=== PATIENT | female | born 1970 | race Caucasian/White ===

== ENCOUNTER 2024-03-07 19:44 | Inpatient (IN) | payer BC, SELFPAY ==
[2024-03-07 14:18] VITALS: BP 152/92
--- NOTE | 2024-03-07 14:19 | ED.GENMED ---
ED Provider Triage
<Katharina Watson PA-C - Last Filed: 03/07/24 14:27>
-
Patient seen by provider in Triage?: Seen in Triage
Attestation: A medical screening examination has been initiated by a qualified medical provider. Based on the assessment performed at this time, it has been determined that an emergent medical condition may exist and the patient has been informed
that further medical evaluation and possible additional diagnostic testing may be needed.
HPI: 53yoF here with L flank pain that began at 2:30am this morning. Feels like kidney stone pain. Pain started to radiate into upper back/neck 1 hour ago. Now c/o slight chest pain. +Vomiting.
GENERAL: Alert , in no apparent distress
EYE: No visual abnormalities.
NECK: Trachea midline
ENT: No visible abnormalities.
LUNGS: No acute respiratory distress
NEUROLOGICAL: Alert and oriented
SKIN: Skin intact. No visible changes.
MUSCULOSKELETAL: Moving extremities normally
PSYCH: Normal and appropriate interaction.
This is a medical evaluation conducted in person to initiate diagnostic evaluation and provide initial therapeutics. Please see further documentation by the treating clinician.
Cardiac labs, UA, EKG, CXR, and CT abdomen ordered.
History of Present Illness
<Katharina Watson PA-C - Last Filed: 03/07/24 14:27>
General
Chief Complaint: Back Pain
Time Seen by Provider: 03/07/24 17:00
<Junito Sykes PA-C - Last Filed: 03/07/24 20:16>
General
Source: patient
History of Present Illness
History of Present Illness:
53-year-old female with past medical history of asthma presenting to the emergency department for evaluation of 2 separate concerns with her first concern being left flank pain associated with nausea and vomiting similar to previous episodes of
renal/ureteral colic and kidney stones intermittent ongoing for the patient since October. Patient has passed multiple stones during this time but has yet to follow-up with urology. Today the symptoms started around 2:30 in the morning, constant
with sharper bursts of pain. On the way to the emergency department patient started developing a new pain which she states was more in her upper back and chest and while in the waiting room started going to her left arm and jaw. Patient states
this is different than the typical renal/ureteral colic pain she had been having. At present time and at time of my exam this pain is much more improved although still mildly present to the left anterior chest. Patient has no ACS risk factors
including family history, cigarettes or tobacco use, hypertension, hyperlipidemia or diabetes. Patient denies any recent travel. Currently without any fevers or urinary symptoms.
Past History
<Katharina Watson PA-C - Last Filed: 03/07/24 14:27>
Past History
ED Past Medical History: None
ED Past Surgical History: None
<Junito Sykes PA-C - Last Filed: 03/07/24 20:16>
Past History
ED Past Medical History: Asthma
ED Past Surgical History: Orthopedic
Social History
Tobacco: Non-smoker
Alcohol: Occasional
Drug: None
Personal:
Living: with family
Review of Systems
<Junito Sykes PA-C - Last Filed: 03/07/24 20:16>
Review of Systems
All Other Systems: ROS reviewed and negative except as documented in HPI and ROS
Phy Exam
<Junito Sykes PA-C - Last Filed: 03/07/24 20:16>
Physical Exam
Physical Exam:
GENERAL: Alert , in no apparent distress but does appear uncomfortable
EYE: clear conjunctiva b/l
HEAD: NCAT
ENT: o/p clr, mmm.
CARDIAC: Regular rate and rhythm .
LUNGS: Clear breath sounds bilaterally, no acute respiratory distress, no wheezes/rales/rhonchi, reproducible chest wall ttp over left anterior chest distal to breast
ABDOMEN: Soft, mild left lower abd/pelvic ttp, no r/g, no cvat
NEUROLOGICAL: Alert and oriented
SKIN: Warm and dry, skin intact.
MUSCULOSKELETAL: No edema, well perfused.
PSYCH: Normal and appropriate interaction.
Scores
<Junito Sykes PA-C - Last Filed: 03/07/24 20:16>
Heart Failure Risk
Heart Failure Risk Score: Not Applicable
Heart Score for Chest Pain Patients
STEMI patient?: Not applicable
Withdrawal Assessment of Alcohol
Withdrawal Assessment Completed?: Not applicable
Course
<Katharina Watson PA-C - Last Filed: 03/07/24 14:27>
Orders/Labs/Results
Orders:
Orders
03/07/24 14:23
Electrocardiogram (*1) Urgent
Reason for Study: Chest Pain
EKG- Treatment ONCE
03/07/24 14:24
CT Abd/pel Without Iv Or Oral Urgent
Comment:
Reason For Exam: L flank pain
CR Chest - 2 Views Urgent
Comment:
Reason For Exam: CP
03/07/24 14:32
Complete Blood Count/With Diff Urgent
Comprehensive Metabolic Panel Urgent
Troponin I Urgent
03/07/24 17:08
Electrocardiogram (*1) Urgent
Reason for Study: Chest Pain
EKG- Treatment ONCE
0.9% Sodium Chloride 1000 ml [Nss] 1,000 ml IV BOLUS
Ketorolac [Toradol] 30 mg IV NOW STA
Ondansetron Injectable [Zofran] 4 mg IV NOW STA
03/07/24 17:39
Troponin I Urgent
03/07/24 18:29
Tamsulosin [Flomax] 0.4 mg PO NOW STA
03/07/24 18:46
Venlafaxine Extended Release [Effexor Xr] 150 mg PO NOW STA
03/07/24 19:12
CefTRIAXone [Rocephin] 1,000 mg IV NOW STA
03/07/24 19:16
Admit/Transfer Patient As Directed
Co-Sign Provider:
Level of Care: Inpatient admission
Assign to:: Telemetry
Physician / Group: Pranav
Diagnosis: Obstructing Kidney Stone
Reason for Telemetry: Chest Pain syndromes
Date to Stop Telemetry: 03/09/24
Time to Stop Telemetry: 11:00
Reason for Hospitalization: IVFs, IV abx
Expected length of stay greater than two midnights?: Yes
ELOS- Estimated Length of Stay in days: 3
I certify the patient meets the requirements for IP care: Yes
Urinalysis Reflex To Culture Urgent
Date Specimen was Collected: 03/07/24
Time Specimen was Collected: 16:55
Urine Microscopic Reflex Cult Urgent
Sterile Water [Sterile Water For Injection] 10 ml IV NOW STA
PRN Pain Medication Management As Directed
May give lesser potent ordered pain med per pt: Yes
preference::
Protocol:: Medication orders for pain may be administered in a
manner that supports deferring to patient preference
when the pt is:
- Requesting an ordered lesser potent pain medication.
Least to most potent pain medications are defined
as: acetaminophen < NSAID < tramadol < opioids
(morphine, oxycodone, hydromorphone).
- Requesting a lesser dose of the same medication IF
ORDERED.
- Requesting a less intrusive route of administration
if both routes are prescribed by the provider (PO <
IV).
03/07/24 19:18
Code Status As Directed
Resuscitation Status: Full Code
03/07/24 23:30
Troponin I Routine
03/09/24 11:00
DC Protocol for Telemetry ONCE
Abnormal Lab Results
03/07/24 03/07/24
14:32 19:16
WBC 12.4 H 10^3/uL
(4.8-10.8)
MCH 26.6 L pg
(27.0-31.0)
MCHC 32.3 L g/dL
(33.0-37.0)
Absolute Neuts (auto) 11.1 H 10^3/uL
(1.4-6.5)
Absolute Lymphs (auto) 0.7 L 10^3/uL
(1.2-3.4)
Neutrophils % 90.0 H %
(42.2-75.2)
Lymphocytes % 5.4 L %
(20.5-51.1)
BUN 21 H mg/dl
(7-17)
Glucose 171 H mg/dl
(70-99)
AST 39 H U/L
(14-36)
ALT 51 H U/L
(0-35)
Albumin 5.1 H g/dl
(3.5-5.0)
Ur Occult Blood Reflex 2+ A
(Negative)
Urine RBC 3-6 A /HPF
(0-2)
03/07/24 14:32
03/07/24 14:32
Vital Signs
Initial and Last Documented VS:
Initial Vital Signs
Temp Pulse Resp BP Pulse Ox
98.1 F 87 16 152/92 98
03/07/24 14:18 03/07/24 14:18 03/07/24 14:18 03/07/24 14:18 03/07/24 14:18
Last Documented Vital Signs
Temp Pulse Resp BP Pulse Ox
98.1 F 82 18 180/78 99
03/07/24 14:18 03/07/24 17:40 03/07/24 17:40 03/07/24 17:40 03/07/24 17:40
<Junito Sykes PA-C - Last Filed: 03/07/24 20:16>
Orders/Labs/Results
Orders:
Orders
03/07/24 14:23
Electrocardiogram (*1) Urgent
Reason for Study: Chest Pain
EKG- Treatment ONCE
03/07/24 14:24
CT Abd/pel Without Iv Or Oral Urgent
Comment:
Reason For Exam: L flank pain
CR Chest - 2 Views Urgent
Comment:
Reason For Exam: CP
03/07/24 14:32
Complete Blood Count/With Diff Urgent
Comprehensive Metabolic Panel Urgent
Troponin I Urgent
03/07/24 17:08
Electrocardiogram (*1) Urgent
Reason for Study: Chest Pain
EKG- Treatment ONCE
0.9% Sodium Chloride 1000 ml [Nss] 1,000 ml IV BOLUS
Ketorolac [Toradol] 30 mg IV NOW STA
Ondansetron Injectable [Zofran] 4 mg IV NOW STA
03/07/24 17:39
Troponin I Urgent
03/07/24 18:29
Tamsulosin [Flomax] 0.4 mg PO NOW STA
03/07/24 18:46
Venlafaxine Extended Release [Effexor Xr] 150 mg PO NOW STA
03/07/24 19:12
CefTRIAXone [Rocephin] 1,000 mg IV NOW STA
03/07/24 19:16
Admit/Transfer Patient As Directed
Co-Sign Provider:
Level of Care: Inpatient admission
Assign to:: Telemetry
Physician / Group: Pranav
Diagnosis: Obstructing Kidney Stone
Reason for Telemetry: Chest Pain syndromes
Date to Stop Telemetry: 03/09/24
Time to Stop Telemetry: 11:00
Reason for Hospitalization: IVFs, IV abx
Expected length of stay greater than two midnights?: Yes
ELOS- Estimated Length of Stay in days: 3
I certify the patient meets the requirements for IP care: Yes
Urinalysis Reflex To Culture Urgent
Date Specimen was Collected: 03/07/24
Time Specimen was Collected: 16:55
Urine Microscopic Reflex Cult Urgent
Sterile Water [Sterile Water For Injection] 10 ml IV NOW STA
PRN Pain Medication Management As Directed
May give lesser potent ordered pain med per pt: Yes
preference::
Protocol:: Medication orders for pain may be administered in a
manner that supports deferring to patient preference
when the pt is:
- Requesting an ordered lesser potent pain medication.
Least to most potent pain medications are defined
as: acetaminophen < NSAID < tramadol < opioids
(morphine, oxycodone, hydromorphone).
- Requesting a lesser dose of the same medication IF
ORDERED.
- Requesting a less intrusive route of administration
if both routes are prescribed by the provider (PO <
IV).
03/07/24 19:18
Code Status As Directed
Resuscitation Status: Full Code
03/07/24 23:30
Troponin I Routine
03/09/24 11:00
DC Protocol for Telemetry ONCE
Abnormal Lab Results
03/07/24 03/07/24
14:32 19:16
WBC 12.4 H 10^3/uL
(4.8-10.8)
MCH 26.6 L pg
(27.0-31.0)
MCHC 32.3 L g/dL
(33.0-37.0)
Absolute Neuts (auto) 11.1 H 10^3/uL
(1.4-6.5)
Absolute Lymphs (auto) 0.7 L 10^3/uL
(1.2-3.4)
Neutrophils % 90.0 H %
(42.2-75.2)
Lymphocytes % 5.4 L %
(20.5-51.1)
BUN 21 H mg/dl
(7-17)
Glucose 171 H mg/dl
(70-99)
AST 39 H U/L
(14-36)
ALT 51 H U/L
(0-35)
Albumin 5.1 H g/dl
(3.5-5.0)
Ur Occult Blood Reflex 2+ A
(Negative)
Urine RBC 3-6 A /HPF
(0-2)
03/07/24 14:32
03/07/24 14:32
Vital Signs
Initial and Last Documented VS:
Initial Vital Signs
Temp Pulse Resp BP Pulse Ox
98.1 F 87 16 152/92 98
03/07/24 14:18 03/07/24 14:18 03/07/24 14:18 03/07/24 14:18 03/07/24 14:18
Last Documented Vital Signs
Temp Pulse Resp BP Pulse Ox
98.1 F 82 18 180/78 99
03/07/24 14:18 03/07/24 17:40 03/07/24 17:40 03/07/24 17:40 03/07/24 17:40
<Junito Sykes PA-C - Last Filed: 03/07/24 20:16>
MDM/Problems Addressed
Differential Diagnosis Includes:
Renal/ureteral colic, kidney stone, less concern for pyelonephritis given lack of infectious symptoms, atypical ACS/anginal presentation
MDM/Problems Addressed:
53-year-old female presenting to the emergency department for evaluation of left-sided flank pain which she states is similar to previous episodes of kidney stones which she has been passing since October. Secondary concern of chest and back pain
which is different than her ureteral colic symptoms. Labs, urine, EKG and troponin ordered from triage. Patient's troponin is nonnegative however she has a nonischemic EKG. Remaining workup does reveal a leukocytosis of 12,000. Urinalysis
pending. CT scan of the abdomen and pelvis reveals a 7-1/2 x 5-1/2 calculus at the left UVJ with significant obstructive uropathy noted. Will consult with urology due to the size and nature of the stone. Due to patient's possible anginal symptoms
I am repeating a troponin as well as repeat EKG. Disposition pending
<Junito Sykes PA-C - Last Filed: 03/07/24 20:16>
*Radiology
Radiology exam reviewed: radiology read reviewed
*Pulse Oximetry
Patient hypoxic: no
*EKG
Interpreted by ED Provider?: Yes
Heart Rate: 86
Rate: normal
Rhythm: sinus and PVC's
Ischemia: no ischemia
*Medicare Coordinator Interpretation
Rate: normal
Rhythm: sinus
*Critical Care Note
Total Time (30-74mins, 75-104mins- exclusive of procedures): Not Applicable
<Junito Sykes PA-C - Last Filed: 03/07/24 20:16>
Patient Management
Discussion with other providers: Hospitalist and Laser Machine Operator
Escalation/DeEscalation of care consider admission/obs:
Patient's repeat troponin remains nonnegative although it did go up ever so slightly at 0.021. Patient's urinalysis without sign of infection. She remains with pain and given the size of the stone do not feel it would be in patient's best interest
to be discharged home. I notified urology who request patient receive a dose of Flomax and keep n.p.o. after midnight for possible operative planning in the morning. Patient may need cardiac clearance given her chest pain and cardiology can be
consulted as needed. Hospitalist team accepts for continued evaluation and treatment.
ED Attending Note
<Katharina Watson PA-C - Last Filed: 03/07/24 14:27>
-
Portions of this chart may have been created with voice recognition software.� Occasional wrong word or��sound alike� substitutions may have occurred due to the inherent limitations of voice recognition software.
Discharge Plan
Departure
Patient Disposition: Admit
Date of Disposition: 03/07/24
Time of Disposition: 18:27
Presentation/result/management discussed w/ accepting MD/DO: Hospitalist
Discharge Problem:
Left ureteral stone, Chest pain
Interventions
Interventions:
*Risk Screen - Suicide Last Done: 03/07/24 14:21
*Neglect/Abuse Screening Last Done: 03/07/24 14:21
ED- Fall Risk Assessment Last Done: 03/07/24 16:57
ED-Musculoskeletal Assessment Last Done: 03/07/24 16:57
[2024-03-07 14:44] LABS: % Basophils 0.2 % (0-2); % Immature Granulocytes 0.3 % (0-0.5); % Lymphocytes 5.4 % (20.5-51.1); % Monocytes 4.1 % (1.7-9.3); Absolute Lymphocytes 0.7 10^3/uL (1.2-3.4); Absolute Monocytes 0.5 10^3/uL (0.1-0.6); Absolute Neutrophils 11.1 10^3/uL (1.4-6.5); Hematocrit 43.9 % (37.0-47.0); Hemoglobin 14.2 g/dL (12.0-16.0); Mean Corp Hgb Conc. 32.3 g/dL (33.0-37.0); Mean Corpuscular Hgb 26.6 pg (27.0-31.0); Mean Corpuscular Volume 82.4 fL (81.0-99.0); Mean Platelet Volume 10.3 fL (7.4-10.4); Nucleated Red Blood Cells % 0 %; Platelet Count 240 10^3/uL (130-400); Red Blood Cell Count 5.33 10^6/uL (4.20-5.40); Red Cell Dist. Width 13.8 % (11.5-14.5); White Blood Cell Count 12.4 10^3/uL (4.8-10.8)
[2024-03-07 15:02] LABS: ALT (SGPT) 51 U/L (0-35); AST (SGOT) 39 U/L (14-36); Albumin 5.1 g/dl (3.5-5.0); Alkaline Phosphatase 106 U/L (38-126); Blood Urea Nitrogen 21 mg/dl (7-17); Calcium 9.7 mg/dl (8.4-10.2); Carbon Dioxide 23 mmol/L (22-30); Chloride 101 mmol/L (98-107); Glucose 171 mg/dl (70-99); Potassium 4.2 mmol/L (3.5-5.1); Sodium 135 mmol/L (135-145); Total Bilirubin 0.4 mg/dl (0.2-1.3); Total Protein 7.8 g/dl (6.3-8.2); eGFR > 60.00
[2024-03-07] MEDS: ZOFRAN 4 MG IV (17:32)
[2024-03-07] MEDS: NSS 1000 IV ×2 (17:32→22:21)
[2024-03-07] MEDS: TORADOL 30 MG IV (17:32)
[2024-03-07 17:40] VITALS: BP 180/78
[2024-03-07 18:12] LABS: Troponin I 0.021 ng/ml
[2024-03-07] MEDS: FLOMAX 0.4 MG PO (18:54)
[2024-03-07] MEDS: EFFEXOR XR 150 MG PO (18:55)
--- NOTE | 2024-03-07 19:01 | HPS.HSE ---
Family Physician
-
Family Physician: Pelon Kasper
Chief Complaint
-
Left Flank Pain
History of Present Illness
Patient is a 53 y/o female past medical history of nephrolithiasis, asthma and anxiety/depression who presents with left flank pain. Patient reports two similar episode over the past few months, both times she was able to pass the stone without
intervention. This morning around 2:30AM she developed severe left flank pain. Pain began radiating up the back to the shoulder. She reports associated nausea and vomiting. Patient also complains of pain in her chest / shoulder and slightly up
to the jaw. She reports associated cold sweats but did not take her temperature She denies dysuria, or hematuria. She denies shortness of breath.
Medical History
Past Medical History
Past Medical History: Reports Other
Additional Past Medical History:
Asthma
Anxiety/Depression
Nephrolithiasis
Left Foot Drop
Past Surgical History: Reports Other
Additional Past Surgical History:
Back Surgery x 2
Social History
Tobacco: Non-smoker
Alcohol: Occasional
Family History
Family History: Not pertinent
Allergies / Home Medications
Allergies reflects when Allergies were last updated in [facility].
Home Medications with original date entered in [facility]
Allergy/Medication List:
Allergies
Allergy/AdvReac Type Severity Reaction Status Date / Time
ciprofloxacin [From Cipro] Allergy Swelling Verified 07/18/20 09:48
Home Medications
ascorbic acid (vitamin C) 1,000 mg tablet (Vitamin C) 1,000 mg PO DAILY 03/07/24
aspirin-caffeine 500 mg-32.5 mg tablet (Braxton Back and Body) 2 tab PO DAILYPRN PRN mild pain 03/07/24
cyanocobalamin (vitamin B-12) 1,000 mcg tablet 1,000 mcg PO DAILY 03/07/24
fluticasone furoate 200 mcg-vilanterol 25 mcg/dose inhalation powder (Breo Ellipta) 1 inh inhalation R BID 03/07/24
loratadine 10 mg tablet (Claritin) 10 mg PO DAILYPRN PRN allergies 03/07/24
venlafaxine 150 mg capsule,extended release 24 hr 150 mg PO DAILY 03/07/24
vitamin A 3,000 mcg (10,000 unit) capsule 3,000 mcg PO DAILY 03/07/24
Review of Systems
-
A 12 point ROS was completed and negative except as noted: Yes
Constitutional: Reports Chills; Denies Fever
Respiratory: Denies Cough or Trouble Breathing
Cardiac: Reports See HPI
: Reports See HPI
Physical Exam
Vital Signs
Vital Signs
Temp Pulse Resp BP Pulse Ox
98.1 F 82 18 180/78 99
03/07/24 14:18 03/07/24 17:40 03/07/24 17:40 03/07/24 17:40 03/07/24 17:40
Physical Exam
General: Comfortable and Conversant
HEENT: Anicteric and Moist mucous membranes
Respiratory: Clear and Non Labored Respirations
Cardiac: S1/S2, Regular Rhythm and Other (chest pain reproducible with palpation)
GI: Soft and Non Tender
Rectal: Deferred by Provider
Genito-urinary: Clear Urine and Other (Mild Left CVA tenderness)
Musculoskeletal: No Clubbing, No Cyanosis and No Edema
Skin: Warm and Dry
Neuro: Awake, Alert, Oriented, Nonfocal/grossly intact and Other (Chronic left foot drop)
Psych: Calm and Other (Appears slightly anxious)
Laboratory Results
-
03/07/24 14:32
03/07/24 14:32
Laboratory Results
Total Bilirubin 0.4 mg/dl (0.2-1.3) 03/07/24 14:32
AST 39 U/L (14-36) H 03/07/24 14:32
ALT 51 U/L (0-35) H 03/07/24 14:32
Alkaline Phosphatase 106 U/L (38-126) 03/07/24 14:32
Troponin I 0.021 ng/ml 03/07/24 17:39
Abd/Pelvis CT Scan:
7.4 x 5.4 mm calculus at the left ureterovesical junction with moderate to advanced obstructive uropathy. Perinephric soft tissue stranding. Hydroureteronephrosis.
Data Reviewed
-
CT Scan: Report Reviewed by me
Lab Data: Labs Reviewed by me
Impression/Plan
-
Obstructing Left UVJ Stone
-Consult Urology
-Continue IVFs
-Continue NPO
-Start Ceftriaxone
-Pain control with Toradol and Dilaudid
Chest Pain, suspect musculoskeletal related to vomiting
-Troponin negative x 2 - Check one more troponin to complete series
Prolonged QT
-Patient maintained on venlafaxine as outpatient
-Avoid further QT prolonging medications
-Recheck ECG in AM
Asthma, no acute exacerbation
-Continue Breo
Anxiety/Depression
-Continue venlafaxine
DVT proph: SCDs
Code Status: Full Code
--- NOTE | 2024-03-07 19:03 | W.PN.UPDATE ---
Update Note
Progress Note Update
This is an addendum to the H&P written by Jennifer Lujan on 03/07/2024. Patient seen and examined independently with PA.
53-year-old female past medical history of kidney stones, asthma, depression, left foot drop, presenting with severe left flank pain, sweats starting today. She also had pain from her back to her left shoulder and across the chest described as
aching.
Chest x-ray unremarkable. CT abdomen pelvis shows 7.4 x 5.4 mm left ureterovesicular calculus with hydroureteronephrosis and perinephric soft tissue stranding.
EKG shows sinus rhythm with occasional PVCs. Troponin of 0.02. Labs show mild transaminitis. Labs show leukocytosis.
N.p.o., IV fluids, Toradol and Dilaudid, Zofran, IV fluids, ceftriaxone, urology consulted.
Chest pain likely musculoskeletal pain secondary to vomiting. Chest is tender to palpation.
[2024-03-07] MEDS: ROCEPHIN 1000 MG IV (19:27)
[2024-03-07 19:34] LABS: Urine Albumin Trace (Neg - Trace); Urine Bilirubin Negative (Negative); Urine Character Clear (Clear); Urine Color Yellow; Urine Glucose Negative (Negative); Urine Ketone Negative (Negative); Urine Leukocyte Negative (Negative); Urine Nitrite Negative (Negative); Urine Occult Blood 2+ (Negative); Urine Specific Gravity 1.015 (<1.030); Urine Urobilinogen Negative (Neg - 1+)
[2024-03-07 19:50] LABS: Urine Squamous Cell None seen /LPF (Few); Urine White Cell 0-2 /HPF (0-5)
[2024-03-07 20:28] VITALS: BP 182/74
[2024-03-07 21:55] VITALS: BP 124/74; BMI 33.9
[2024-03-07] MEDS: TORADOL 15 MG IV (22:22)
[2024-03-07 22:49] VITALS: BP 120/58
[2024-03-08] VITALS (11 sets, daily range): BP systolic 98–151; BP diastolic 63–94
[2024-03-08 00:01] LABS: Troponin I 0.025 ng/ml
[2024-03-08] MEDS: SYMBICORT 160/4.5 MCG INHALER INH (01:01)
--- NOTE | 2024-03-08 01:14 | PTCARENOTE ---
Pt arrived at 2145 via ED stretcher. Pt was able to ambulate to bed. VSS. IVF infusing. pain 06/28 (see mar) updated on plan of care. head to toe assessment complete. bed locked and in lowest position. oriented to room and call girard.
[2024-03-08] MEDS: NSS 1000 IV ×2 (06:08→20:15)
--- NOTE | 2024-03-08 07:24 | W.SUR.PREOP ---
Pre-Operative Surgical Note
-
I have examined this patient prior to the performance of the scheduled procedure.
The patient's condition is unchanged from the time of the current History and
Physical and the patient is able to undergo the scheduled procedure.
Obstructing distal left ureteral stone w/ hydronephrosis.
Severe recurrent left renal colic w/ N/V
It appears patient has had distal migration of same left ureteral stone since 10/2023 ([facility] ED initially) - due to see urologist but was unable to due to caring for father (s/p [employer]/IC @[facility] in fall 2023).
CT imaging/report reviewed w/ pt.
Plan
- NPO
- Continue IV Ceftriaxone
- Surgical consent signed on chart
- To OR today for left ULS
D/w patient this AM.
[2024-03-08] MEDS: SYMBICORT 160/4.5 MCG INHALER 2 PUFF INH ×2 (08:05→20:37)
--- NOTE | 2024-03-08 08:15 | W.PN.HOSP.TC ---
Today's Communication/Plan
-
See PN
Assessment / Plan
Assessment / Plan
53yo F with PMHX of kidney stones, anxiety, asthma came with sudden onset of L flank pain found 7.4x5.4mm L UPJ stone with hydroureteronephrosis and perinephric stranding. ALso Had an episode of vomiting. Couple of hours later developed chest tomas
started under R scapulae anf then travelled to the L anterior chest.
A/P
#L obstructive nephropathy 2/2 nephrolithiasis with pyelonephritis
Ceftriaxone, pending Ucx
Urology for intervention
IVF
#Chest pain
#Prolonged QT
most likely related to nephrolithiasis and vomiting
EKG with no ST changes or TWI suggestive of ACS, trops 0.02-0.021-0.025
Meeting jayda criteria for LVH
outpatient Cardiology advised
Chest XR without acute changes
Avoid QT prolonging meds
CHeck TSH and Lipid panel
#Asthma, not in exacerbation
#Anxiety d/o
cont home meds
#Transaminitis
chronic since at least 2020
Hepatitis panel
outpatient GI
#hyperglycemia
check Hgb A1c
DVT ppx on SCDs
Full code
I have spent at least 53min reviewing chart, test results, communication with consultants and direct patient care
Anticipated Discharge: 24 - 48 hours
Subjective/Interval History
-
Date of Service: March 08, 2024
Objective Data
-
Labs:
Laboratory Results
03/08/24
06:00
WBC Pending
Hgb Pending
Hct Pending
Plt Count Pending
Sodium Pending
Potassium Pending
Chloride Pending
Carbon Dioxide Pending
BUN Pending
Creatinine Pending
Glucose Pending
Calcium Pending
Vital Signs:
Vital Signs
Temp Pulse Resp BP Pulse Ox
97.4 F 80 16 98/63 97
03/08/24 02:48 03/08/24 08:11 03/08/24 08:11 03/08/24 02:48 03/08/24 08:11
I&O
03/07/24 03/08/24 03/09/24
06:59 06:59 06:59
Intake Total 1200 / 1200
Balance 1200 / 1200
Review of Systems
-
History Source: Patient
All other systems: Reviewed and negative
Genitourinary: Reports Flank Pain (L)
Physical Exam
-
General: No Apparent Distress
HEENT: Normocephalic, Atraumatic and Moist Mucous Membranes
Cardiac: Regular Rhythm
GI: Soft
Genito-urinary: Costovertebral Angle Tend (L)
Musculoskeletal: No Clubbing, No Cyanosis and No Edema
Neuro: Awake, Alert, Oriented and AO x 3
Psych: Calm
[2024-03-08 08:55] LABS: Hematocrit 37.7 % (37.0-47.0); Mean Corp Hgb Conc. 31.8 g/dL (33.0-37.0); Mean Corpuscular Hgb 26.8 pg (27.0-31.0); Mean Corpuscular Volume 84.2 fL (81.0-99.0); Mean Platelet Volume 10.4 fL (7.4-10.4); Platelet Count 178 10^3/uL (130-400); Red Blood Cell Count 4.48 10^6/uL (4.20-5.40); Red Cell Dist. Width 14.1 % (11.5-14.5); White Blood Cell Count 7.6 10^3/uL (4.8-10.8)
[2024-03-08] MEDS: EFFEXOR XR 150 MG PO (08:57)
[2024-03-08 09:00] LABS: Troponin I 0.021 ng/ml
--- NOTE | 2024-03-08 09:21 | CM ---
Addendum entered by Hue Nguyễn 03/08/24 09:25:
PCP: Pelon Kasper
Pharmacy: [facility]
Original Note:
Patient seen at bedside.
per nursing ERCP today
IA completed
Lives in a split level home with & step daughter, 2 steps to enter, 6 steps to bed/bath
PLOF: Independent no assistive device
Denies DME
Denies housing/utilities/food/transportation insecurities
Has had [facility] in past years ago for back sx, denies Rehab
no needs anticipated
PLAN: Home, no needs anticipated
to transport
[2024-03-08 09:46] LABS: TSH Reflex To Free T4 1.54 uIU/ml (0.47-4.68)
[2024-03-08 10:26] LABS: Glycohemoglobin (HgbA1c) 6.1 % (4.0-5.6)
[2024-03-08 13:42] LABS: Blood Urea Nitrogen 22 mg/dl (7-17); Calcium 8.6 mg/dl (8.4-10.2); Carbon Dioxide 24 mmol/L (22-30); Chloride 106 mmol/L (98-107); Estimated Creatinine Clearance 84 ml/min; Glucose 122 mg/dl (70-99); HDL Cholesterol 52 mg/dl; LDL Cholesterol, Calculated 111 mg/dl; Magnesium 2.3 mg/dl (1.6-2.3); Potassium 3.7 mmol/L (3.5-5.1); Sodium 138 mmol/L (135-145); Total Cholesterol 183 mg/dl (50-199); Triglyceride 102 mg/dl (10-149); Very Low Density Lipoprotein 20 mg/dl (0-30); eGFR > 60.00
--- NOTE | 2024-03-08 15:50 | W.IMMPOSTOP ---
Surgical Immed Post Op Note
-
Primary Surgeon:
chrissy
Assisting Surgeon:
Pre-op Diagnosis:
left ureteral stone
Post-op Diagnosis:
same
Procedure Performed:
cysto/left ureteroscopy/laser litho and stent
Anesthesia Type:
gen
Specimen / Cultures:
stone
Estimated Blood Loss:
2cc
Complications:
none
Operative Findings:
stone fragmented and extracted
stent placed
discharge when medically stable
[2024-03-08] MEDS: Pyridium 200 MG PO ×2 (16:19→23:43)
--- NOTE | 2024-03-08 16:30 | PTCARENOTE ---
Pt received from the PACU via bed. Transport was w/o incident. Pt is AAOx3, HRR, lungs are clear, resp. easy. VSS, Pt is afebrile. Pt ambulated to the Bathroom and able to void w/o diff. Urine is currently blood tinged post procedure. Pt instructed
on plan of care. Pt verbalized understanding of instructions. Call girard is within reach.
[2024-03-08 16:51] LABS: Hepatitis B Surface Antigen Negative (Negative)
[2024-03-08 17:10] LABS: Hepatitis B Core Ab, Total Negative (Negative); Hepatitis B Surface Antibody Negative; Hepatitis C Antibody Negative (Negative)
[2024-03-08] MEDS: ROCEPHIN 1000 MG IV (20:16)
[2024-03-08] MEDS: TORADOL 15 MG IV (21:37)
[2024-03-09 00:40] VITALS: BP 141/70
[2024-03-09 04:40] VITALS: BP 151/86
[2024-03-09] MEDS: NSS IV (06:03)
[2024-03-09 06:40] LABS: % Basophils 0.1 % (0-2); % Immature Granulocytes 0.4 % (0-0.5); % Lymphocytes 14.9 % (20.5-51.1); % Monocytes 6.9 % (1.7-9.3); % Neutrophils 77.7 % (42.2-75.2); Absolute Lymphocytes 1.5 10^3/uL (1.2-3.4); Absolute Monocytes 0.7 10^3/uL (0.1-0.6); Absolute Neutrophils 7.9 10^3/uL (1.4-6.5); Hematocrit 39.3 % (37.0-47.0); Hemoglobin 12.5 g/dL (12.0-16.0); Mean Corp Hgb Conc. 31.8 g/dL (33.0-37.0); Mean Corpuscular Hgb 26.9 pg (27.0-31.0); Mean Corpuscular Volume 84.5 fL (81.0-99.0); Mean Platelet Volume 10.8 fL (7.4-10.4); Nucleated Red Blood Cells % 0 %; Platelet Count 234 10^3/uL (130-400); Red Blood Cell Count 4.65 10^6/uL (4.20-5.40); Red Cell Dist. Width 13.9 % (11.5-14.5); White Blood Cell Count 10.2 10^3/uL (4.8-10.8)
[2024-03-09 07:04] LABS: ALT (SGPT) 33 U/L (0-35); AST (SGOT) 25 U/L (14-36); Alkaline Phosphatase 80 U/L (38-126); Blood Urea Nitrogen 20 mg/dl (7-17); Calcium 8.9 mg/dl (8.4-10.2); Carbon Dioxide 23 mmol/L (22-30); Chloride 107 mmol/L (98-107); Estimated Creatinine Clearance 108 ml/min; Glucose 132 mg/dl (70-99); Potassium 4.2 mmol/L (3.5-5.1); Sodium 139 mmol/L (135-145); Total Bilirubin 0.2 mg/dl (0.2-1.3); Total Protein 6.5 g/dl (6.3-8.2); eGFR > 60.00
[2024-03-09 07:32] VITALS: BP 155/98
[2024-03-09] MEDS: SYMBICORT 160/4.5 MCG INHALER 2 PUFF INH (07:44)
[2024-03-09] MEDS: Pyridium 200 MG PO ×2 (08:59→16:10)
[2024-03-09] MEDS: EFFEXOR XR 150 MG PO (09:01)
--- NOTE | 2024-03-09 11:01 | W.PN.HOSP.TC ---
Today's Communication/Plan
-
With concern for pyelonephritis - reasonable to await for Ucx result (at least prelim) before switching to oral Abx
Assessment / Plan
Assessment / Plan
53yo F with PMHX of kidney stones, anxiety, asthma came with sudden onset of L flank pain found 7.4x5.4mm L UPJ stone with hydroureteronephrosis and perinephric stranding so concern for pyelonephritis. Also Had an episode of vomiting. Couple of
hours later developed chest tomas started under R scapulae and then travelled to the L anterior chest, that resolved
A/P
#L obstructive nephropathy 2/2 nephrolithiasis with pyelonephritis
Ceftriaxone, pending Ucx
Urology for intervention
IVF
#Chest pain
#Prolonged QT
most likely related to nephrolithiasis and vomiting
EKG with no ST changes or TWI suggestive of ACS, trops 0.02-0.021-0.025- 0.021
Meeting jayda criteria for LVH
outpatient Cardiology advised
Chest XR without acute changes
Avoid QT prolonging meds
CHeck TSH and Lipid panel
#Asthma, not in exacerbation
#Anxiety d/o
cont home meds
#Transaminitis
chronic since at least 2020
Hepatitis panel neg
outpatient GI
#hyperglycemia
check Hgb A1c
DVT ppx on SCDs
Full code
I have spent at least 53min reviewing chart, test results, communication with consultants and direct patient care
Anticipated Discharge: Within 24 hours
Subjective/Interval History
-
Date of Service: March 09, 2024
Objective Data
-
Labs:
Laboratory Results
03/09/24
05:45
WBC 10.2
Hgb 12.5
Hct 39.3
Plt Count 234 D
Sodium 139
Potassium 4.2
Chloride 107
Carbon Dioxide 23
BUN 20 H
Creatinine 0.7
Glucose 132 H
Calcium 8.9
Total Bilirubin 0.2
AST 25
ALT 33
Alkaline Phosphatase 80
Vital Signs:
Vital Signs
Temp Pulse Resp BP Pulse Ox
98 F 78 16 155/98 96
03/09/24 07:32 03/09/24 07:47 03/09/24 07:47 03/09/24 07:32 03/09/24 07:47
I&O
03/08/24 03/09/24 03/10/24
06:59 06:59 06:59
Intake Total 1200 / 1200 1490 / 1490
Output Total 1300 / 1300
Balance 1200 / 1200 190 / 190
Review of Systems
-
History Source: Patient
All other systems: Reviewed and negative
Physical Exam
-
General: No Apparent Distress
Neuro: Awake, Alert, Oriented and AO x 3
Psych: Calm
[2024-03-09 11:03] VITALS: BP 170/92
[2024-03-09] MEDS: TORADOL 15 MG IV (11:43)
--- NOTE | 2024-03-09 14:25 | CM ---
Chart reviewed. Met with pt
Pend urine cx
Will have ride home when discharged
Plan - anticipate home no needs
--- NOTE | 2024-03-09 14:33 | W.PN.URO.CBU ---
Today's Communication / Plan
-
Stable for discharge from standpoint
Follow up for stent removal
Assessment / Plan
-
53F Obstructing distal left ureteral stone w/ hydronephrosis.
Severe recurrent left renal colic w/ N/V
s/p ureteroscopy and stent placement
- Urine culture negative, UA low suspicion for UTI
- Reasonable to continue short course of PO antibiotic
- Stable for discharge from standpoint - no signs of systemic infection
- Follow up with Dr. Hi for stent removal
Diagnosis
-
Date of Service: March 09, 2024
-
Patient Diagnosis:
ureteral stone
Post Op Day: s/p ureteroscopy
Subjective
-
tolerating stent, mild cramping pain
Objective
-
Vital Signs
Temp Pulse Resp BP Pulse Ox
98.1 F 79 17 170/92 98
03/09/24 11:03 03/09/24 11:03 03/09/24 11:03 03/09/24 11:03 03/09/24 11:03
Intake and Output
03/08/24 03/09/24 03/10/24
06:59 06:59 06:59
Intake Total 1200 / 1200 1490 / 1490
Output Total 1300 / 1300
Balance 1200 / 1200 190 / 190
Intake:
Oral fluids 120 / 120
IV fluids (Total) 1080 / 1080 1490 / 1490
normosol 50 / 50
Output:
Urine, Voided 1300 / 1300
Other:
Number of approximated MODERATE 3
amounts of urine
Laboratory Results
03/09/24 05:45
03/09/24 05:45
Physical Exam
-
General - well developed, well nourished, no acute distress
--- NOTE | 2024-03-09 15:12 | W.DCSUMMARY ---
Addendum entered and electronically signed by Suresh Crespo MD 03/09/24 15:48:
elevated BP over the daytime with episode of normal-low BP at night, inconsistent values, unclear if needs antihypertensives at this time as can be elevated 2/2 abd discomfort and recent procedure. Advised to follow with PCP. RIsk of medications
dropping BP (with nighttime value in hospital <100/70) is higher then any current benefit -
Original Note:
Discharge Summary
Discharge Data
Date of Admission: 03/07/24
Date of Discharge: 03/09/24
-
Pending Results: No
Hospital Course
53yo F with PMHX of kidney stones, anxiety, asthma came with sudden onset of L flank pain found 7.4x5.4mm L UPJ stone with hydroureteronephrosis and perinephric stranding so concern for pyelonephritis. Also Had an episode of vomiting. Couple of
hours later developed chest tomas started under R scapulae and then travelled to the L anterior chest, that resolved. Ucx negative, afebrile since admission, no leukocytosis - reasonable to continue cefdinir for 7 days. Outpatient follow up with
urology in 2 weeks for the stent removal. Medically stable for dc
I have spent at least 37min reviewing chart, test results, communication with consultants and direct patient care
Patient was managed for
#L obstructive nephropathy 2/2 nephrolithiasis with pyelonephritis
#Chest pain
#Prolonged QT
#Asthma, not in exacerbation
#Anxiety d/o
#Transaminitis
#hyperglycemia
#Hyperlipidemia - control with diet
#PreDM - low carb diet
Discharge Plan
-
Patient Disposition: Home (Routine Discharge)
Discharge Diagnosis/Procedures: Nephrolithiasis
Diet: Low Cholesterol and Diabetic, Carb Controlled
Activity: As tolerated
Referrals:
Raphael Hi MD [Active] - (Please call [facility] to schedule a stent removal procedure (in office) in [address] Hi.)
Pelon Kasper MD [Family Provider] - in less than 1 week (discuss elevated LDL and pre-diabetes)
Prescriptions:
New
cefdinir 300 mg capsule
300 mg PO Q12H Qty: 14 0RF
Continued
ascorbic acid (vitamin C) [Vitamin C] 1,000 mg Tablet
1,000 mg PO DAILY
venlafaxine 150 mg Capsule,Extended Release 24hr
150 mg PO DAILY
cyanocobalamin (vitamin B-12) 1,000 mcg Tablet
1,000 mcg PO DAILY
vitamin A 3,000 mcg (10,000 unit) Capsule
3,000 mcg PO DAILY
loratadine [Claritin] 10 mg Tablet
10 mg PO DAILYPRN PRN (Reason: allergies)
Braxton Back and Body 500-32.5 mg Tablet
2 tab PO DAILYPRN PRN (Reason: mild pain)
fluticasone furoate-vilanterol [Breo Ellipta] 200-25 mcg/dose Blister With Device
1 inh INHALATION R BID
Discharge Orders:
Discharge Patient (As Directed); Ordered 03/09/24
Ordered By: Suresh Crespo
Discharge Date and Time
Print Language: FAROESE
[2024-03-09 15:26] VITALS: BP 184/98
[2024-03-09 15:49] VITALS: BP 172/80
== END 2024-03-09 16:50 | disposition home or self-care (01) | DRG 661 ==
LOC: 2 SOUTH 19:44
PROVIDERS: Physician Assistant; Physician Assistant Medical; Specialist; ADMITTING PHYSICIAN Hospitalist; ATTENDING PHYSICIAN Internal Medicine; EMERGENCY PHYSICIAN Emergency Medicine; FAMILY PHYSICIAN Family Medicine
PROC: 0T778DZ Dilation of Left Ureter with Intraluminal Device, Via Natural or Artificial Opening Endoscopic (ICD-10-PCS; 2024-03-08)
PROC: 0TC78ZZ Extirpation of Matter from Left Ureter, Via Natural or Artificial Opening Endoscopic (ICD-10-PCS; 2024-03-08)
DX: N13.6 Pyonephrosis (principal); J45.909 Unspecified asthma, uncomplicated; F41.9 Anxiety disorder, unspecified; E78.5 Hyperlipidemia, unspecified; M21.372 Foot drop, left foot; R73.03 Prediabetes; R74.01 Elevation of levels of liver transaminase levels; R94.31 Abnormal electrocardiogram [ECG] [EKG]; Z88.1 Allergy status to other antibiotic agents
CPT/HCPCS: 71046; 74018; 74176; 76000; 80048; 80053; 80061; 81003; 81015; 82365; 83036; 83735; 84443; 84484; 85025; 85027; 86704; 86706; 86803; 87086; 87340; 93005; 94640; 96361; 96374; 96375; 99285; C1758; C1894; C2617

== ENCOUNTER 2024-03-25 19:56 | Inpatient (IN) | payer BC, SELFPAY ==
[2024-03-25 12:23] VITALS: BP 166/102
[2024-03-25 12:51] LABS: % Basophils 0.5 % (0-2); % Eosinophils 0.8 % (0-6); % Immature Granulocytes 0.4 % (0-0.5); % Lymphocytes 15.1 % (20.5-51.1); % Monocytes 6.1 % (1.7-9.3); % Neutrophils 77.1 % (42.2-75.2); Absolute Basophils 0.1 10^3/uL (0-0.2); Absolute Eosinophils 0.1 10^3/uL (0-0.7); Absolute Lymphocytes 1.7 10^3/uL (1.2-3.4); Absolute Monocytes 0.7 10^3/uL (0.1-0.6); Absolute Neutrophils 8.5 10^3/uL (1.4-6.5); Hemoglobin 13.9 g/dL (12.0-16.0); Mean Corp Hgb Conc. 32.3 g/dL (33.0-37.0); Mean Corpuscular Hgb 26.8 pg (27.0-31.0); Mean Corpuscular Volume 82.9 fL (81.0-99.0); Mean Platelet Volume 10.6 fL (7.4-10.4); Nucleated Red Blood Cells % 0 %; Platelet Count 263 10^3/uL (130-400); Red Blood Cell Count 5.19 10^6/uL (4.20-5.40); Red Cell Dist. Width 13.2 % (11.5-14.5)
[2024-03-25 13:12] LABS: ALT (SGPT) 42 U/L (0-35); AST (SGOT) 29 U/L (14-36); Albumin 4.9 g/dl (3.5-5.0); Alkaline Phosphatase 99 U/L (38-126); Blood Urea Nitrogen 23 mg/dl (7-17); Calcium 9.7 mg/dl (8.4-10.2); Carbon Dioxide 26 mmol/L (22-30); Chloride 103 mmol/L (98-107); Glucose 147 mg/dl (70-99); Lipase 73 U/L (23-300); Potassium 4.3 mmol/L (3.5-5.1); Sodium 140 mmol/L (135-145); Total Bilirubin 0.4 mg/dl (0.2-1.3); Total Protein 7.5 g/dl (6.3-8.2); eGFR > 60.00
--- NOTE | 2024-03-25 15:33 | ED.GENMED ---
History of Present Illness
General
Chief Complaint: Urinary Symptoms
Source: patient
Exam Limitations: none
Time Seen by Provider: 03/25/24 15:12
History of Present Illness
History of Present Illness:
53-year-old female presents with increased left flank pain nausea and vomiting. She has a stent in her left ureter secondary to an obstructing stone. The stent was placed on March 07. She had been doing okay having aches here and there over
the past 2 days she notes worsening pain to the left flank that radiates to the front with associated vomiting. She also notes more blood in her urine. No fevers. No other
Past History
Past History
ED Past Medical History: Asthma
ED Past Surgical History: Orthopedic
Social History
Tobacco: Non-smoker
Alcohol: Occasional
Drug: None
Personal:
Living: with family
Phy Exam
Physical Exam
Physical Exam:
General: Well-appearing female no acute respiratory distress HEENT: Normocephalic atraumatic
Heart: Regular rate and rhythm no murmurs
Lungs: Clear no wheeze
Abd: soft, tender to left CVA and mild to LLQ, no guarding
Ext: No cyanosis or edema
Skin: warm, no rash
Course
Orders/Labs/Results
Orders:
Orders
03/25/24 12:39
Complete Blood Count/With Diff Urgent
Comprehensive Metabolic Panel Urgent
Lipase Urgent
03/25/24 15:32
CT Abd/pel Without Iv Or Oral Urgent
Comment:
Reason For Exam: left flank pain
0.9% Sodium Chloride 1000 ml [Nss] 1,000 ml IV BOLUS
Ketorolac [Toradol] 15 mg IV NOW STA
Ondansetron Injectable [Zofran] 4 mg IV NOW STA
03/25/24 15:59
Urinalysis Reflex To Culture Urgent
Date Specimen was Collected: 03/25/24
Time Specimen was Collected: 15:58
Urine Microscopic Reflex Cult Urgent
Urine Culture Urgent
LEAH Source: U
Specimen Description:
Date Specimen was Collected: 03/25/24
Time Specimen was Collected: 15:58
03/25/24 18:00
CefTRIAXone [Rocephin] 1,000 mg IV NOW STA
HYDROmorphone [Dilaudid] 0.5 mg IV NOW STA
Abnormal Lab Results
03/25/24 03/25/24
12:39 15:59
WBC 11.0 H 10^3/uL
(4.8-10.8)
MCH 26.8 L pg
(27.0-31.0)
MCHC 32.3 L g/dL
(33.0-37.0)
MPV 10.6 H fL
(7.4-10.4)
Absolute Neuts (auto) 8.5 H 10^3/uL
(1.4-6.5)
Absolute Monos (auto) 0.7 H 10^3/uL
(0.1-0.6)
Neutrophils % 77.1 H %
(42.2-75.2)
Lymphocytes % 15.1 L %
(20.5-51.1)
BUN 23 H mg/dl
(7-17)
Glucose 147 H mg/dl
(70-99)
ALT 42 H U/L
(0-35)
Ur Occult Blood Reflex 4+ A
(Negative)
Urine Nitrite (Reflex) Positive A
(Negative)
Urine Bilirubin 1+ A
(Negative)
Leukocyte Esterase Rfl 1+ A
(Negative)
Urine RBC 70-80 A /HPF
(0-2)
Urine Bacteria (Reflex) Many A
(Negative)
Urine Albumin (Reflex) 2+ A
(Neg - Trace)
03/25/24 12:39
03/25/24 12:39
Vital Signs
Initial and Last Documented VS:
Initial Vital Signs
Temp Pulse Resp BP Pulse Ox
97.4 F 82 20 166/102 99
03/25/24 12:23 03/25/24 12:23 03/25/24 12:23 03/25/24 12:23 03/25/24 12:23
Last Documented Vital Signs
Temp Pulse Resp BP Pulse Ox
97.4 F 72 16 144/84 98
03/25/24 12:23 03/25/24 17:00 03/25/24 17:00 03/25/24 17:00 03/25/24 17:00
MDM/Problems Addressed
Differential Diagnosis Includes:
left flank pain. Differential can be UTI, recurrent stone vs diverticulitis.
Patient uncomfortable. Zofran and Toradol with fluids ordered urinalysis pending. Will recheck CT of abdomen
*Critical Care Note
Total Time (30-74mins, 75-104mins- exclusive of procedures): Not Applicable
Update Note
Update Note:
UA consistent with UTI. White blood cell count 11,000. Patient is requiring more pain medicine other than Toradol. CT demonstrates Ted ureteral stranding. Concern for UTI or ascending urinary tract infection. Given increasing pain and lab
abnormalities will keep in hospital. Rocephin ordered fluids ordered. Discussed with urology admitted to hospitalist
ED Attending Note
-
Portions of this chart may have been created with voice recognition software.� Occasional wrong word or��sound alike� substitutions may have occurred due to the inherent limitations of voice recognition software.
Discharge Plan
Departure
Patient Disposition: Admit
Date of Disposition: 03/25/24
Time of Disposition: 18:43
Presentation/result/management discussed w/ accepting MD/DO: Hospitalist
Discharge Problem:
UTI (urinary tract infection)
Prescriptions:
No Action
ascorbic acid (vitamin C) [Vitamin C] 1,000 mg Tablet
1,000 mg PO DAILY
venlafaxine 150 mg Capsule,Extended Release 24hr
150 mg PO DAILY
cyanocobalamin (vitamin B-12) 1,000 mcg Tablet
1,000 mcg PO DAILY
vitamin A 3,000 mcg (10,000 unit) Capsule
3,000 mcg PO DAILY
loratadine [Claritin] 10 mg Tablet
10 mg PO DAILYPRN PRN (Reason: allergies)
Braxton Back and Body 500-32.5 mg Tablet
2 tab PO DAILYPRN PRN (Reason: mild pain)
fluticasone furoate-vilanterol [Breo Ellipta] 200-25 mcg/dose Blister With Device
1 inh INHALATION R BID
cefdinir 300 mg capsule
300 mg PO Q12H Qty: 14 0RF
phenazopyridine [Pyridium] 100 mg tablet
100 mg PO TID Qty: 9 0RF
Referrals:
Pelon Kasper MD [Family Provider] -
Interventions
Interventions:
*Risk Screen - Suicide Last Done: 03/25/24 15:43
*General Assessment Last Done: 03/25/24 15:43
*Neglect/Abuse Screening Last Done: 03/25/24 15:43
ED- Fall Risk Assessment Last Done: 03/25/24 15:43
*ED COVID-19 Vaccine History Last Done: 03/25/24 15:56
ED-Female Genitourinary Assessment Last Done: 03/25/24 15:43
Discharge Date and Time
Print Language: UZBEK
[2024-03-25 15:43] VITALS: BMI 33.3
[2024-03-25 15:50] VITALS: BP 145/85
[2024-03-25] MEDS: TORADOL 15 MG IV (15:56)
[2024-03-25] MEDS: NSS 1000 IV ×2 (15:56→23:08)
[2024-03-25] MEDS: ZOFRAN 4 MG IV (15:57)
[2024-03-25 16:31] LABS: Urine Albumin 2+ (Neg - Trace); Urine Bilirubin 1+ (Negative); Urine Character Very Cloudy (Clear); Urine Color Brown; Urine Glucose Negative (Negative); Urine Ketone Negative (Negative); Urine Leukocyte 1+ (Negative); Urine Nitrite Positive (Negative); Urine Occult Blood 4+ (Negative); Urine Specific Gravity 1.025 (<1.030); Urine Urobilinogen 1+ (Neg - 1+)
[2024-03-25 16:42] LABS: Urine Bacteria Many (Negative); Urine Red Blood Cell 70-80 /HPF (0-2)
[2024-03-25 17:00] VITALS: BP 144/84
[2024-03-25] MEDS: ROCEPHIN 1000 MG IV (18:47)
[2024-03-25] MEDS: DILAUDID 0.5 MG IV (18:47)
--- NOTE | 2024-03-25 19:21 | HPS.HSE ---
Family Physician
-
Family Physician: Pelon Kasper
Chief Complaint
-
flank pain
History of Present Illness
This is a 53-year-old female who has a past medical history significant for asthma, recurrent kidney stones, anxiety who was recently diagnosed with left UPJ stone with hydronephrosis status post left ureteral stent placement and prophylactic
antibiotics who now presents to the emergency department with recurrence of left-sided flank pain.
Patient reports that she was doing well up until about 2 days ago when she started having a sensation of left flank pressure and pain. She reports that the pain appears to be radiating to her left groin. She denies dysuria. She denies having any
fevers or chills. Then today she reported that she started having nausea and diaphoresis. She got up and she felt very lightheaded as though she was going to pass out. So she decided to come to the emergency department. She has not had any
vomiting. She denies hematuria.
In the emergency department she was afebrile, blood pressure was 140/80 with a pulse of 72. She was satting 88% on room air. She had no leukocytosis with WBC of 11, hemoglobin was stable and platelet were normal. Electrolytes BUN/creatinine were
all within normal range.
UA shows positive nitrites and leukocyte esterase with a few WBCs and many bacteria. CT a/p shows left double-J ureteral stent in normal position with mild surrounding periureteral inflammation in the left retroperitoneum. Mild distention of the
left intrarenal collecting system.
Medical History
Past Medical History
Past Medical History: Reports Asthma and Psychiatric (Anxiety)
Additional Past Medical History:
Recurrent nephrolithiasis
Status post left ureteral stent
Past Surgical History: Reports Orthopedic
Social History
Tobacco: Non-smoker
Alcohol: Occasional
Drug: None
Personal:
Living: With Family
Employment: Employed
Family History
Family History: Not pertinent
Allergies / Home Medications
Allergies reflects when Allergies were last updated in [email or web address].
Home Medications with original date entered in [email or web address]
Allergy/Medication List:
Allergies
Allergy/AdvReac Type Severity Reaction Status Date / Time
ciprofloxacin [From Cipro] Allergy Swelling Verified 03/25/24 12:27
Home Medications
ascorbic acid (vitamin C) 1,000 mg tablet (Vitamin C) 1,000 mg PO DAILY Supplement 03/07/24
aspirin-caffeine 500 mg-32.5 mg tablet (Braxton Back and Body) 2 tab PO DAILYPRN PRN mild pain 03/07/24
cyanocobalamin (vitamin B-12) 1,000 mcg tablet 1,000 mcg PO DAILY Supplement 03/07/24
fluticasone furoate 200 mcg-vilanterol 25 mcg/dose inhalation powder (Breo Ellipta) 1 inh inhalation R BID Lung/Breathing Issues 03/07/24
loratadine 10 mg tablet (Claritin) 10 mg PO DAILYPRN PRN allergies 03/07/24
venlafaxine 150 mg capsule,extended release 24 hr 150 mg PO DAILY Mental Health/Anxiety 03/07/24
vitamin A 3,000 mcg (10,000 unit) capsule 3,000 mcg PO DAILY Supplement 03/07/24
Review of Systems
-
Constitutional: Reports No Symptoms
EENT: Reports No Symptoms
Respiratory: Reports No Symptoms
Cardiac: Reports No Symptoms
Abdomen/GI: Reports No Symptoms
: Reports Flank Pain
Musculoskeletal: Reports No Symptoms
Skin: Reports No Symptoms
Neurological: Reports Dizzy
Endocrine: Reports No Symptoms
Hematologic/Lymphatic: Reports No Symptoms
Psych: Reports No Symptoms
Physical Exam
Vital Signs
Vital Signs
Temp Pulse Resp BP Pulse Ox
97.4 F 72 16 144/84 98
03/25/24 12:23 03/25/24 17:00 03/25/24 17:00 03/25/24 17:00 03/25/24 17:00
Physical Exam
General: Well Developed, Well Nourished, Comfortable and Conversant
HEENT: NormoCephalic, Anicteric, Moist mucous membranes and Atraumatic
Respiratory: Clear
Cardiac: S1/S2 and Regular Rhythm
Breast: Deferred by me
GI: Soft, Non Tender, Non Distended and Normal Bowel Sounds
Rectal: Deferred by Provider
Genito-urinary: Costovertebral angle tend (Left-sided)
Musculoskeletal: No Clubbing, No Cyanosis and No Edema
Skin: Warm
Neuro: AO x 3 and Nonfocal/grossly intact
Hematologic/Lymphatic: No Lymphadenopathy
Psych: Calm
Laboratory Results
-
03/25/24 12:39
03/25/24 12:39
Laboratory Results
Total Bilirubin 0.4 mg/dl (0.2-1.3) 03/25/24 12:39
AST 29 U/L (14-36) 03/25/24 12:39
ALT 42 U/L (0-35) H 03/25/24 12:39
Alkaline Phosphatase 99 U/L (38-126) 03/25/24 12:39
Lipase 73 U/L (23-300) 03/25/24 12:39
Data Reviewed
-
CT Scan: Report Reviewed by me
Lab Data: Labs Reviewed by me
Old Records: Reviewed
Impression/Plan
-
IMPRESSION:
This is a 53-year-old with recent left kidney stone with hydronephrosis status post ureteral stent placement on March 08 who has a planned stent exchange/removal scheduled 2 weeks afterwards comes in with left sided flank pain. She has + left
CVA tenderness. No dysuria, vomiting or nausea. + U/A with nitrites, bacteria and LE and few WBC. CT scan shows improvement of hydro and no stones. Possibly complicated uti/pyelonephritis
PLAN:
1. Pyelonephritis -Presumed pyelonephritis, stent in place without hydro or stones. HD stable. D/W urology. No indication for procedure immediately.
- admit to med/surg
- urine cultures pending
- iv ceftriaxone
- urology recommended antibiotics and exchange of stent in 2-3 days
- urology consult placed
- iv fluids and pain control.
2. Asthma - Stable
- continue ics/laba and prn albuterol
DVT PPX - lovenox sq for now
Code Status - Full code
--- NOTE | 2024-03-25 19:28 | EDRN ---
Report received, patient being medicated for pain and hospitalist at bedside working on admission.
[2024-03-25] MEDS: SYMBICORT 160/4.5 MCG INHALER 2 PUFF INH (22:13)
[2024-03-25 22:50] VITALS: BP 158/97; BMI 33.3
--- NOTE | 2024-03-25 23:00 | PTCARENOTE ---
New admit to 2S from ER via stretcher and able to ambulate to room bed with steady gait. Pt. A&Ox3, in NAD, even and unlabored breathing on RA, and VSS. Pt. oriented to room and unit policies at time of assessment. Questions answered and plan of
care reviewed.
[2024-03-25] MEDS: TORADOL 10 MG IV (23:09)
[2024-03-26] MEDS: TORADOL 10 MG IV ×3 (05:50→18:02)
--- NOTE | 2024-03-26 05:56 | W.PN.HOSP.TC ---
Today's Communication/Plan
-
cont abx
bowel regimen
Pain control
follow urine culture
Assessment / Plan
Assessment / Plan
Physical Exam
General: Well Developed, Well Nourished, Comfortable and Conversant
HEENT: NormoCephalic, Anicteric, Moist mucous membranes and Atraumatic
Respiratory: Clear
Cardiac: S1/S2 and Regular Rhythm
GI: Soft, Non Tender, Non Distended and Normal Bowel Sounds
Genito-urinary: Costovertebral angle tend (Left-sided)
Musculoskeletal: No Clubbing, No Cyanosis and No Edema
Neuro: AO x 3 and Nonfocal/grossly intact
Psych: Calm
53F with recent left kidney stone hydronephrosis status post ureteral stent Dec who has a planned stent exchange/removal scheduled 2 weeks afterwards comes in with left sided flank pain. She has +left CVA tenderness. No dysuria, vomiting or
nausea. +U/A with nitrites, bacteria and LE and few WBC. CT scan showed improvement of hydro and no stones. Possibly complicated uti/pyelonephritis.
PLAN:
# Pyelonephritis -Presumed pyelonephritis, stent in place without hydro or stones. HD stable. D/W urology. No indication for procedure immediately.
- urine cultures pending
- iv ceftriaxone
- urology consult appreciated antibiotics and exchange of stent in 2-3 days
- pain control.
# Asthma - Stable
- continue ics/laba and prn albuterol
#Constipation
Senna/Colace BID
DVT PPX - lovenox sq
GI ppx Protonix
Code Status - Full code
I spent a total of 45 minutes with the patient or on the floor. More than 50% of this time involved counseling and coordination of care.
Anticipated Discharge: 24 - 48 hours
Subjective/Interval History
-
Date of Service: March 26, 2024
No acute distress sitting up comfortably in bed. Reports improvement in symptoms. Pain controlled with current pain regimen though not resolved.
Objective Data
-
Labs:
Laboratory Results
03/26/24
06:00
WBC Pending
Hgb Pending
Hct Pending
Plt Count Pending
Sodium Pending
Potassium Pending
Chloride Pending
Carbon Dioxide Pending
BUN Pending
Creatinine Pending
Glucose Pending
Calcium Pending
Vital Signs:
Vital Signs
Temp Pulse Resp BP Pulse Ox
98.2 F 79 18 158/97 97
03/25/24 22:50 03/25/24 22:50 03/25/24 22:50 03/25/24 22:50 03/25/24 22:50
I&O
03/24/24 03/25/24 03/26/24
06:59 06:59 06:59
Intake Total 800 / 800
Balance 800 / 800
--- NOTE | 2024-03-26 07:12 | CONS.URO ---
Medical History
History of Present Illness
03/07/2024 Cystoscopy, left ureteroscopy with laser lithotripsy
and stone extraction, stent placement by Dr Ordoñez.
Returned to ED last night due to persistent left flank discomfort.
Past Medical History
Past Medical History: None (Asthma Anxiety/Depression Nephrolithiasis Left Foot Drop)
Past Surgical History: Orthopedic (back surgeries) and Urological (as above)
Allergies/Home Medications
Allergies
Allergy/AdvReac Type Severity Reaction Status Date / Time
ciprofloxacin [From Cipro] Allergy Swelling Verified 03/25/24 12:27
Home Medications
�Medication �Instructions �Recorded �Confirmed �Type
ascorbic acid (vitamin C) 1,000 mg 1,000 mg PO DAILY Supplement 03/07/24 03/25/24 History
tablet (Vitamin C)
aspirin-caffeine 500 mg-32.5 mg 2 tab PO DAILYPRN PRN mild pain 03/07/24 03/25/24 History
tablet (Braxton Back and Body)
cyanocobalamin (vitamin B-12) 1,000 mcg PO DAILY Supplement 03/07/24 03/25/24 History
1,000 mcg tablet
fluticasone furoate 200 1 inh inhalation R BID 03/07/24 03/25/24 History
mcg-vilanterol 25 mcg/dose Lung/Breathing Issues
inhalation powder (Breo Ellipta)
loratadine 10 mg tablet (Claritin) 10 mg PO DAILYPRN PRN allergies 03/07/24 03/25/24 History
venlafaxine 150 mg 150 mg PO DAILY Mental 03/07/24 03/25/24 History
capsule,extended release 24 hr Health/Anxiety
vitamin A 3,000 mcg (10,000 unit) 3,000 mcg PO DAILY Supplement 03/07/24 03/25/24 History
capsule
clobetasol 1 applic topical PRN PRN Eczema 03/26/24 03/26/24 History
Physical Exam
Vital Signs
Vital Signs
Temp Pulse Resp BP Pulse Ox
98.2 F 79 18 158/97 97
03/25/24 22:50 03/25/24 22:50 03/25/24 22:50 03/25/24 22:50 03/25/24 22:50
Physical Exam
adult female asleep in bed upon entrance
General: No Apparent Distress
Genito-urinary: No Costovertebral Tend
Skin: Warm
Neuro: Oriented
Psych: Calm and Intact Judgement
Assessment / Plan
-
expected signs and symptoms s/p Left Ureteroscopy, LAser Lithotripsy, Stenting
chris d/w Dr Ordoñez plan for stent
Data Reviewed
-
CT Scan: Image personally visualized and interpreted
Lab Data: Labs Reviewed
Old Records: Reviewed
[2024-03-26 07:30] VITALS: BP 129/80
[2024-03-26 08:16] LABS: Hematocrit 35.6 % (37.0-47.0); Hemoglobin 11.6 g/dL (12.0-16.0); Mean Corp Hgb Conc. 32.6 g/dL (33.0-37.0); Mean Corpuscular Hgb 27.5 pg (27.0-31.0); Mean Corpuscular Volume 84.4 fL (81.0-99.0); Platelet Count 193 10^3/uL (130-400); Red Blood Cell Count 4.22 10^6/uL (4.20-5.40); Red Cell Dist. Width 13.7 % (11.5-14.5); White Blood Cell Count 4.7 10^3/uL (4.8-10.8)
[2024-03-26] MEDS: SYMBICORT 160/4.5 MCG INHALER 2 PUFF INH ×2 (08:25→20:11)
[2024-03-26 08:41] LABS: Blood Urea Nitrogen 20 mg/dl (7-17); Calcium 8.5 mg/dl (8.4-10.2); Carbon Dioxide 29 mmol/L (22-30); Chloride 106 mmol/L (98-107); Estimated Creatinine Clearance 107 ml/min; Glucose 118 mg/dl (70-99); Sodium 141 mmol/L (135-145); eGFR > 60.00
[2024-03-26 08:48] LABS: Potassium 4.6 mmol/L (3.5-5.1)
[2024-03-26] MEDS: NSS 1000 IV (09:13)
[2024-03-26] MEDS: EFFEXOR XR 150 MG PO (09:16)
[2024-03-26] MEDS: TYLENOL 650 MG PO ×2 (09:21→19:44)
--- NOTE | 2024-03-26 09:23 | CM ---
Patient seen at bedside. Patient states that she lives with family and her PCP is Dr. Kasper. [facility] [place]. Patient has been independent prior to admission and has no DME at home. Patient indicated that she was
anticipating needing to be here for several days for a stent replacement. Patient does not anticipate any discharge planning needs. CM will continue to follow for discharge planning needs.
Plan; home with no needs anticipated.
[2024-03-26] MEDS: SENOKOT-S 1 TABLET PO ×2 (12:51→19:41)
[2024-03-26 15:31] VITALS: BP 123/59
[2024-03-26] MEDS: LOVENOX 40 MG SC (17:08)
[2024-03-26] MEDS: STERILE WATER FOR INJECTION 10 ML IV (17:09)
[2024-03-26] MEDS: ROCEPHIN 1000 MG IV (17:09)
[2024-03-26 23:00] VITALS: BP 117/74
[2024-03-27 06:33] LABS: Hematocrit 37.2 % (37.0-47.0); Hemoglobin 11.9 g/dL (12.0-16.0); Mean Corpuscular Hgb 27.2 pg (27.0-31.0); Mean Corpuscular Volume 85.1 fL (81.0-99.0); Mean Platelet Volume 10.5 fL (7.4-10.4); Platelet Count 192 10^3/uL (130-400); Red Blood Cell Count 4.37 10^6/uL (4.20-5.40); Red Cell Dist. Width 13.5 % (11.5-14.5); White Blood Cell Count 4.8 10^3/uL (4.8-10.8)
[2024-03-27 07:01] LABS: Blood Urea Nitrogen 18 mg/dl (7-17); Calcium 8.8 mg/dl (8.4-10.2); Carbon Dioxide 30 mmol/L (22-30); Chloride 105 mmol/L (98-107); Estimated Creatinine Clearance 107 ml/min; Glucose 110 mg/dl (70-99); Magnesium 2.3 mg/dl (1.6-2.3); Phosphorus 3.6 mg/dl (2.5-4.5); Potassium 4.3 mmol/L (3.5-5.1); Sodium 140 mmol/L (135-145); eGFR > 60.00
--- NOTE | 2024-03-27 07:10 | W.PN.URO.CBU ---
Today's Communication / Plan
-
discharge after cx back with oupt f/u on tuesday for stent removal
Assessment / Plan
-
flank pain s/p ureteroscopy and stent
no obvious evid of infx at this point- cx pending
once cx back- cleared urologically for discharge- would send home with:
tramadol 50mg q8 prn
pyridium 100mg bid
detrol la 4mg qday
pt has appointment on tuesday for stent removal with dr zambrano
Diagnosis
-
Date of Service: March 27, 2024
-
Patient Diagnosis:
flank pain
Subjective
-
pt feels better this am
no fevers/wbc normal
ucx pending
Objective
-
Vital Signs
Temp Pulse Resp BP Pulse Ox
97.9 F 75 16 117/74 97
03/26/24 23:00 03/26/24 23:00 03/26/24 23:00 03/26/24 23:00 03/26/24 23:00
Intake and Output
03/26/24 03/27/24 03/28/24
06:59 06:59 06:59
Intake Total 1040 / 1040 2059
Balance 1040 / 1040 2059
Intake:
Oral fluids 240 / 240 960 / 960
IV fluids (Total) 800 / 800 1100 / 1100
Other:
Number of approximated MODERATE 1 4
amounts of urine
Laboratory Results
03/27/24 05:44
03/27/24 05:44
Review of Systems
-
Constitutional: Fatigue
Respiratory: No Symptoms
Cardiac: No Symptoms
Abdomen/GI: No Symptoms
: Frequency
Physical Exam
-
General - no acute distress
--- NOTE | 2024-03-27 07:11 | W.PN.HOSP.TC ---
Today's Communication/Plan
-
discharge
Assessment / Plan
Assessment / Plan
Physical Exam
General: Well Developed, Well Nourished, Comfortable and Conversant
HEENT: NormoCephalic, Anicteric, Moist mucous membranes and Atraumatic
Respiratory: Clear
Cardiac: S1/S2 and Regular Rhythm
GI: Soft, Non Tender, Non Distended and Normal Bowel Sounds
Genito-urinary: Costovertebral angle tend (Left-sided)
Musculoskeletal: No Clubbing, No Cyanosis and No Edema
Neuro: AO x 3 and Nonfocal/grossly intact
Psych: Calm
53F with recent left kidney stone hydronephrosis status post ureteral stent Mar 08 who has a planned stent exchange/removal scheduled 2 weeks afterwards comes in with left sided flank pain. She has +left CVA tenderness. No dysuria, vomiting or
nausea. +U/A with nitrites, bacteria and LE and few WBC. CT scan showed improvement of hydro and no stones. Possibly complicated uti/pyelonephritis.
PLAN:
# Pyelonephritis -Presumed pyelonephritis, stent in place without hydro or stones. HD stable. D/W urology. No indication for procedure immediately.
- urine culture appreciated no significant growth
- iv ceftriaxone transitioned to Augmentin planned for 5 more days abx treatment on discharge.
- urology consult appreciated stable for discharge with outpatient follow up with Dr Hi Tuesday for stent removal.
Also as per urology
tramadol 50mg q8 prn
pyridium 100mg bid
detrol la 4mg qday
# Asthma - Stable
- continue ics/laba and prn albuterol
#Constipation
Senna/Colace BID
DVT PPX - lovenox sq
GI ppx Protonix
Code Status - Full code
Medically stable for discharge home with outpatient follow up recommendations.
Total Time Preparing Discharge ___45____ minutes including examination of the patient, summary of the hospital stay, instructions for continuing care to all relevant caregivers; and preparation of discharge records, prescriptions, and referral
forms if necessary.
Anticipated Discharge: Today
Subjective/Interval History
-
Date of Service: March 27, 2024
Seen and examined at bedside in no acute distress sitting up comfortably in bed. Reports overall improvement in symptoms. Pain controlled though not resolved. Denies new acute issues. Eager to go home.
Objective Data
-
Labs:
Laboratory Results
03/27/24
05:44
WBC 4.8
Hgb 11.9 L
Hct 37.2
Plt Count 192
Sodium 140
Potassium 4.3
Chloride 105
Carbon Dioxide 30
BUN 18 H
Creatinine 0.7
Glucose 110 H
Calcium 8.8
Vital Signs:
Vital Signs
Temp Pulse Resp BP Pulse Ox
97.9 F 75 16 117/74 97
03/26/24 23:00 03/26/24 23:00 03/26/24 23:00 03/26/24 23:00 03/26/24 23:00
I&O
03/26/24 03/27/24 03/28/24
06:59 06:59 06:59
Intake Total 1040 / 1040 2059
Balance 1040 / 1040 2059
[2024-03-27] MEDS: SYMBICORT 160/4.5 MCG INHALER 2 PUFF INH (07:19)
[2024-03-27 07:30] VITALS: BP 135/82
[2024-03-27] MEDS: TORADOL 10 MG IV (08:39)
[2024-03-27] MEDS: EFFEXOR XR 150 MG PO (08:40)
[2024-03-27] MEDS: PROTONIX 40 MG PO (08:40)
[2024-03-27] MEDS: SENOKOT-S 1 TABLET PO (08:40)
[2024-03-27] MEDS: MIRALAX 17 GRAMS PO (08:47)
[2024-03-27] MEDS: AUGMENTIN 875 MG/125 MG 1 TABLET PO (14:46)
[2024-03-27] MEDS: DETROL LA 4 MG PO (14:46)
[2024-03-27 15:35] VITALS: BP 163/93
--- NOTE | 2024-03-27 15:49 | CM ---
Chart reviewed
Met with pt - poss d/c today
Will have ride at d/c
Plan - anticipate home no needs
[2024-03-27] MEDS: TYLENOL 650 MG PO (16:33)
--- NOTE | 2024-03-27 17:32 | W.DCSUMMARY ---
Discharge Summary
Discharge Data
Date of Admission: 03/25/24
Date of Discharge: 03/27/24
-
Pending Results: No
Discharge Plan
-
Patient Disposition: Home (Routine Discharge)
Discharge Diagnosis/Procedures: Flank Pain status post ureteroscopy and stent
Pyelonephritis
severe discogenic degenerative disease at L3/L4, L4/L5, and L5/S1
Condition: Fair
Diet: Regular
Activity: As tolerated
Driving Restrictions: As prior to admission
Bathing Restrictions: None
Activity Restrictions/Additional Instructions:
Please keep your appointment with Urology and follow up with primary care provider in 1 week of discharge.
For pyelonephritis, you've been prescribed Augmentin for 7 more days.
For dysuria/pain associated with ureter stent, you've been prescribed tramadol as needed, tolterodine, and Pyridium.
Please take medications as prescribed/recommended and follow up with primary care provider and/or other healthcare provider involved in your care for refills and/or further adjustment to your medication regimen as necessary.
Referrals:
Raphael Hi MD [Active] - 03/30/24
Pelon Kasper MD [Family Provider] - in one week
Prescriptions:
New
tolterodine 4 mg Capsule,Extended Release 24hr
4 mg PO DAILY Qty: 7 0RF
tramadol 50 mg Tablet
50 mg PO Q8HPRN PRN (Reason: moderate severe pain) Qty: 21 0RF
phenazopyridine 100 mg Tablet
100 mg PO BID Qty: 14 0RF
amoxicillin-pot clavulanate 875-125 mg Tablet
1 tab PO Q12 7 Days Qty: 14 0RF
Continued
ascorbic acid (vitamin C) [Vitamin C] 1,000 mg Tablet
1,000 mg PO DAILY
venlafaxine 150 mg Capsule,Extended Release 24hr
150 mg PO DAILY
cyanocobalamin (vitamin B-12) 1,000 mcg Tablet
1,000 mcg PO DAILY
vitamin A 3,000 mcg (10,000 unit) Capsule
3,000 mcg PO DAILY
loratadine [Claritin] 10 mg Tablet
10 mg PO DAILYPRN PRN (Reason: allergies)
Braxton Back and Body 500-32.5 mg Tablet
2 tab PO DAILYPRN PRN (Reason: mild pain)
fluticasone furoate-vilanterol [Breo Ellipta] 200-25 mcg/dose Blister With Device
1 inh INHALATION R BID
clobetasol cream
1 applic topical PRN PRN (Reason: Eczema)
Discharge Orders:
Discharge Patient (As Directed); Ordered 03/27/24
Ordered By: Manasa Love
Discharge Date and Time
Print Language: GREEK
== END 2024-03-27 17:45 | disposition home or self-care (01) | DRG 690 ==
LOC: 2 SOUTH 19:56
PROVIDERS: Emergency Medicine; Physician Assistant; ADMITTING PHYSICIAN Internal Medicine; ATTENDING PHYSICIAN Internal Medicine; CONSULT PHYSICIAN Specialist; EMERGENCY PHYSICIAN Emergency Medicine; FAMILY PHYSICIAN Family Medicine
DX: N12 Tubulo-interstitial nephritis, not specified as acute or chronic (principal); J45.909 Unspecified asthma, uncomplicated; F41.9 Anxiety disorder, unspecified; K59.00 Constipation, unspecified; M51.369 Other intervertebral disc degeneration, lumbar region without mention of lumbar back pain or lower extremity pain; Z96.0 Presence of urogenital implants; Z79.82 Long term (current) use of aspirin; Z79.899 Other long term (current) drug therapy; Z88.1 Allergy status to other antibiotic agents
CPT/HCPCS: 74176; 80048; 80053; 81003; 81015; 83690; 83735; 84100; 85025; 85027; 87086; 94640; 96361; 96374; 96375; 99285

== ENCOUNTER → 2024-06-04 09:15 | Outpatient (REF) | payer BC, SELFPAY | LOC: RAD 09:15 | PROVIDERS: ATTENDING PHYSICIAN Surgery; FAMILY PHYSICIAN Family Medicine | DX: N13.2 Hydronephrosis with renal and ureteral calculous obstruction (principal) | CPT/HCPCS: 76775 ==